=== PATIENT | female | born 1955 | race Caucasian/White ===

== ENCOUNTER → 2017-01-28 | Outpatient (REF) | payer BC ==
[~2017-01-28] MED LIST: ATN50T PO; TRAM-25 PO
[2017-01-28 14:07] LABS: BASOPHILS % (AUTO) 1 % (0-2); EOSINOPHILS # (AUTO) 0.4 10^3uL; EOSINOPHILS % (AUTO) 10 % (0-4); LYMPHOCYTES # (AUTO) 1.2 X10^3; MEAN CORPUSCULAR HEMOGLOBIN 27.6 PG (26.0-34.0); MEAN CORPUSCULAR HGB CONC 32.6 g/dL (31.0-37.0); MEAN CORPUSCULAR VOLUME 85 FL (80-100); MEAN PLATELET VOLUME 9.4 FL (6.0-9.5); MONOCYTES # (AUTO) 0.5 X10^3; MONOCYTES % (AUTO) 14 % (3-11); NEUTROPHILS # (AUTO) 1.6 X10^3; NEUTROPHILS % (AUTO) 42 % (51-67); PLATELET COUNT 242 10^3uL (150-450)
[2017-01-28 14:54] LABS: ALBUMIN 4.5 g/dL (3.4-5.0); ANION GAP 17.7 MEQ/L (3-15); CALCULATED IONIZED CALCIUM 4.2 mg/dL (3.8-4.6); TOTAL PROTEIN 7.5 g/dL (6.4-8.5)
[2017-01-28 18:16] LABS: IRON 46 ug/dL (50-170)
== END ==
LOC: LAB 13:44
PROVIDERS: ATTEND Nurse Practitioner Family
DX: I10 Essential (primary) hypertension (principal); D50.8 Other iron deficiency anemias; R73.09 Other abnormal glucose
CPT/HCPCS: 80053; 80061; 82728; 83036; 83540; 85025